=== PATIENT | female | born 1975 | race Caucasian/White ===

== ENCOUNTER 2020-09-17 05:23 | Emergency (ER) | payer OTHER, SELFPAY ==
[2020-09-17 06:13] VITALS: BP 165/102; PULSE 82; RESP 16; TEMP 36.9; O2SAT 96; BMI 25.8
--- NOTE | 2020-09-17 06:36 | ED.HA ---
HPI - Headache General Chief Complaint: Headache Stated Complaint: migraine Time Seen by Provider: 09/17/20 06:26 Source: patient Mode of arrival: ambulatory Limitations: no limitations History of Present Illness HPI Narrative: Patient comes emergency room complaining of a migraine headache. Patient states it started approximately 1 week ago, gradually becoming worse. Patient does have history of migraines. Patient states the headache intensifies with light and loud noises. Complaining of nausea, no vomiting, no diarrhea. Patient states the headache is frontal, radiates towards the back of her head bilaterally. Patient denies visual changes, denies dizziness, no chest pain or shortness of breath. Patient states that at home she has tried [id number] medications with no relief. Related Data Previous Rx's Medication Instructions Recorded sumatriptan succinate 50 mg PO Q2-4H PRN #10 tab 09/17/20 Allergies Allergy/AdvReac Type Severity Reaction Status Date / Time cinnamon [CINNAMON] AdvReac Unknown MIGRAINE Unverified 01/19/20 16:39 coconut AdvReac Unknown MIGRAINE Unverified 01/19/20 16:39 Review of Systems Review of Systems: Constitutional : No Weight loss, No Fever, No Chills, No Night Sweats, No Fatigue, No Malaise ENT/Mouth : No Hearing loss, No Ear Pain, No Nasal Congestion, No Sinus Pain, No Hoarseness, No sore throat, No Rhinorrhea, No Swallowing Difficulty Eyes: No Eye Pain, No Swelling, No Redness, No Foreign Body, No Discharge, No Vision Changes complaining of photophobia Cardiovascular : No Chest Pain, No SOB, No Dyspnea on Exertion, No Orthopnea, No Edema, No Palpitations Respiratory : No Cough, No Sputum, No Wheezing, No Smoke Exposure, No Dyspnea Gastrointestinal : No Nausea, No Vomiting, No Diarrhea, No Constipation, No abdominal Pain, No Hematochezia, No Melena Genitourinary : no irregular bleeding, No Dysuria, No Urinary Frequency, No Hematuria, No Urinary Incontinence, No Urgency, No Flank Pain, No Urinary Flow Changes, No Hesitancy Musculoskeletal : No joint pain, No Myalgias, No Joint Swelling Skin : No Skin Lesions, No rash Neuro : No Weakness, No Numbness, No Paresthesias, No Loss of Consciousness, No Dizziness, complaining of a migraine headache Psych : No Anxiety/Panic, No Depression, No SI/HI/AH/VH, No Social Issues, Heme/Lymph: No Bruising, No Bleeding,No Lymphadenopathy Endocrine : No Polyuria, No Polydipsia, No Temperature Intolerance [facility] Past Medical History Medical History Migraine Social History Social History Alcohol intake: current Alcohol intake frequency: holidays/special occasions only Smoking Status: Former smoker Smoked in Last 30 Days: No Use of substances other than those prescribed or required for medical reasons: No Advance Directives: No Advance Directives Information Provided: No Patient : No Physical Exam Vital Signs: Vital Signs: Last Vital Signs Temp 98.5 F 09/17/20 06:13 Pulse 82 09/17/20 06:13 Resp 16 09/17/20 06:13 BP 165/102 H 09/17/20 06:13 Pulse Ox 96 09/17/20 06:13 Body Mass Index 25.8 Appearance: Alert. Oriented X3. No acute distress. Eyes: Pupils equal, round and reactive to light. Has photophobia ENT: Pharynx normal. Neck: Normal inspection. Neck supple. No lymph nodes noted. No crepitus CVS: Normal heart rate and rhythm. Pulses normal. Normal S1 and S2 Respiratory: No respiratory distress. Breath sounds normal. No Wheezing. No rales Abdomen: Soft and nontender. No rigidity. No distention. good BS x4 Skin: Skin warm and dry. Normal skin color. Normal skin turgor. Extremities: No lower extremity edema. No lower extremity edema. No Lacerations. No Rash Neuro: Oriented X 3. No motor deficit. No sensory deficit. Moving all extermities. No slurred speech. Course Course Course Narrative: Patient is receiving IV fluids, Phenergan, Benadryl, Toradol. Patient will need reassessment and likely if she improves she will be discharged home. Sign out given to Dr. Chang Discharge Plan Discharge Clinical Impression: Migraine Qualifiers: Migraine type: unspecified Patient Disposition: Home, Self-Care Instructions: Migraine Headache (ED) Additional Instructions: Please follow-up with your primary care physician tomorrow. If you have any worsening or new symptoms, please return to the emergency room or call 911 Prescriptions: New sumatriptan succinate 50 mg tablet 50 mg PO Q2-4H PRN (Reason: migraine headache) Qty: 10 RF: 0
[2020-09-17] MEDS: Ketorolac Tromethamine 30 MG/ML VIAL IVPUSH (07:02)
[2020-09-17] MEDS: diphenhydrAMINE HCL 50 MG/ML VIAL IVPUSH (07:04)
[2020-09-17] MEDS: Metoclopramide HCl 10 MG/2 ML VIAL IVPUSH (07:07)
[2020-09-17] MEDS: 0.9 % Sodium Chloride 1,000 ML 999 ML IVCONT (07:12)
[2020-09-17 07:54] VITALS: BP 148/97; PULSE 92; RESP 16; TEMP 36.8; O2SAT 98
[2020-09-17 09:44] VITALS: BP 135/92; PULSE 81; RESP 16; TEMP 37.1; O2SAT 97
== END 2020-09-17 09:54 | disposition home or self-care (01) ==
PROVIDERS: Emergency Provider Emergency Medicine; PCP Internal Medicine
DX: G43.909 Migraine, unspecified, not intractable, without status migrainosus (principal)
CPT/HCPCS: 96361; 96374; 96375; 99284; 99285; J1200; J1885; J2765

== ENCOUNTER 2022-12-30 07:51 | Emergency (ER) | payer OTHER, SELFPAY ==
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
[2022-12-30 08:06] VITALS: BP 148/88; PULSE 78; RESP 16; TEMP 37.5; O2SAT 98; BMI 23.4
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
[2022-12-30] MEDS: Acetaminophen 325 MG TABLET 975 MG PO (09:41)
[2022-12-30 11:14] VITALS: BP 139/96; PULSE 74; RESP 14; O2SAT 98
[2022-12-30] MEDS: oxyCODONE HCl Immed Release 5 MG TABLET PO (11:29)
== END 2022-12-30 11:39 | disposition home or self-care (01) ==
PROVIDERS: Emergency Provider Student in an Organized Health Care Education/Training Program; PCP Internal Medicine
DX: S13.4XXA Sprain of ligaments of cervical spine, initial encounter (principal); S09.90XA Unspecified injury of head, initial encounter; M25.562 Pain in left knee; M25.561 Pain in right knee; M25.512 Pain in left shoulder; M25.511 Pain in right shoulder; R51.9 Headache, unspecified; M54.2 Cervicalgia; V43.52XA Car driver injured in collision with other type car in traffic accident, initial encounter; Y93.9 Activity, unspecified; Y92.410 Unspecified street and highway as the place of occurrence of the external cause; Y99.9 Unspecified external cause status; Z79.899 Other long term (current) drug therapy
CPT/HCPCS: 70450; 70486; 72125; 73030; 73564; 99284

== ENCOUNTER 2023-07-30 17:52 | Outpatient (REF) | payer MEDICAID, SELFPAY ==
[2023-07-31 08:52] LABS: BV Int Neg Control Negative (Negative); BV Int Pos Control Positive (Positive)
== END 2023-07-30 17:53 | disposition home or self-care (01) ==
LOC: HO.HHCLNP 17:52
PROVIDERS: Visit Provider Student in an Organized Health Care Education/Training Program
DX: N76.0 Acute vaginitis (principal)
CPT/HCPCS: 87480; 87510; 87660

== ENCOUNTER 2023-11-27 13:31 | Outpatient (REF) | payer MEDICAID, SELFPAY ==
[2023-11-27 15:54] LABS: MANUAL DIFF FLAG NO
[2023-11-27 16:00] LABS: Basophils Absolute Auto 0.1 X10*3/uL (0.0-0.2); Basophils Percent Auto 0.6 % (0-2); Eosinophils Absolute Auto 0.1 X10*3/uL (0.0-0.4); Eosinophils Percent Auto 1.1 % (0-4); Hemoglobin 15.6 g/dl (12.0-16.0); Imm Gran Abs Auto 0.03 X10*3/uL (0.00-0.03); Imm Gran Pct Auto 0.4 % (0.0-0.4); Lymphocytes Absolute Auto 2.2 X10*3/uL (1.2-4.9); Lymphocytes Percent Auto 26.7 % (20-40); Mean Corpuscular HGB Conc 34.7 g/dl (31.0-35.0); Mean Corpuscular Volume 92.4 fL (80.0-98.0); Mean Platelet Volume 11.2 fL (9.4-12.3); Monocytes Absolute Auto 0.6 X10*3/uL (0.1-1.2); Monocytes Percent Auto 6.9 % (2-11); Neutrophils Absolute Auto 5.4 x10*3/uL (2.0-8.3); Neutrophils Percent Auto 64.3 % (45-73); Platelet Count 251 X10*3/uL (160-400); Red Blood Count 4.87 X10*6/uL (4.20-5.50); Red Cell Distribution Width 13.1 % (11.0-16.0); White Blood Count 8.4 X10*3/uL (4.8-10.8)
[2023-11-27 16:14] LABS: Alanine Aminotransferase 15 U/L (0-31); Albumin Level 4.5 g/dL (3.5-5.0); Alkaline Phosphatase 77 U/L (39-117); Anion Gap 14 (12-20); Aspartate Amino Transferase 17 U/L (5-31); Bilirubin Total 0.3 mg/dL (0.0-1.0); Blood Urea Nitrogen 14 mg/dL (9-16); Calcium 10.2 mg/dL (8.4-10.2); Carbon Dioxide 21 mmol/L (22-29); Chloride 107 mmol/L (96-108); Estimated Glomerular Filt Rate > 60; Glucose Random 99 mg/dL (60-115); Potassium 4.2 mmol/L (3.3-5.1); Sodium 138 mmol/L (135-145); Total Protein 7.9 g/dL (6.5-8.0)
[2023-11-30 17:14] LABS: Lyme Abs Screen <0.90 index
== END 2023-11-27 13:32 | disposition home or self-care (01) ==
LOC: HO.HHCL 13:31
PROVIDERS: Visit Provider Nurse Practitioner Family
DX: L03.313 Cellulitis of chest wall (principal)
CPT/HCPCS: 36415; 80053; 85025; 86617; 86618

== ENCOUNTER 2023-12-31 13:25 | Outpatient (REF) | payer MEDICAID, SELFPAY ==
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
== END 2023-12-31 13:26 | disposition home or self-care (01) ==
LOC: HO.MAMMO 13:25
PROVIDERS: Visit Provider Nurse Practitioner Family
DX: N64.4 Mastodynia (principal)
CPT/HCPCS: 77062; 77066

== ENCOUNTER → 2023-12-31 13:30 | Outpatient (BNV) | payer MEDICAID, SELFPAY | PROVIDERS: Visit Provider Radiology Diagnostic Radiology | DX: N64.52 Nipple discharge (principal) | CPT/HCPCS: 77062; 77066 ==

== ENCOUNTER 2024-02-08 18:32 | Outpatient (REF) | payer MEDICAID, SELFPAY ==
[2024-02-12 20:14] LABS: HPV mRNA E6/E7 Not Detected (Not Detected)
== END 2024-02-08 18:33 | disposition home or self-care (01) ==
LOC: HO.HHCLNP 18:32
PROVIDERS: Visit Provider Advanced Practice Midwife
DX: Z12.4 Encounter for screening for malignant neoplasm of cervix (principal)
CPT/HCPCS: 36415; 87624; 88175

== ENCOUNTER 2024-11-09 12:19 | Outpatient (REF) | payer MEDICAID, SELFPAY ==
--- OUTSIDE RECORDS SUMMARY | 2024-11-09 17:00 | XMS_ITS | Encounter Summary ---
Author Organization [employer] Address [address] [facility] [address] [place] [address] Care Team Providers Care Claims Technician Name Role Phone Nahun Azevedo MD Primary Care Prov ider Reason for Visit * Reason Comments Cough UTI Encounter Details Date Type Department Care Team ([facility] st Contact Info) Description 11/09/2024 5:00 PM EDT Office Visit [facility] [address] [place] [address] [phone] Ruben Isidro MD [address] [place] [address] Viral URI with cough (Primary Dx); Acute cystitis with hematuria; Cold sore Social History Tobacco Use Types Packs/Day Years Used Date Smoking Tobacco: Former Cigarettes Q uit: 2014 Passive Smoke Exposure: Current Smokeless Tobacco: Never Comments:Former smoker Alcohol Use Standard Drinks/Week Comments Yes 1 (1 standard drink = 0.6 oz pur e alcohol) occasional alcohol use Depression Answer Date Recorded Patient Health Questionnaire-9 Score 3 08/01/2024 Patient Health Questionnaire-9 Score 3 08/01/2024 Last PHQ-9: Questionnaire Data Not on file 0 08/01/2024 Housing Stability Answer Date Recorded What is your housing situation today? I have maria del carmen sing 01/19/[address] you li ve. Do you have problems with any of the following? None of the above 01/19/2024 Food Insecurity Answer Date Recorded Within the past 12 months, y ou worried that your food would run out before you got money to buy more: Never True 01/19/2024 Within the past 12 months,th e food you bought just didn't last and you didn't have enough money to get more: Never True Transportation Answer Date Recorded In the past 12 months, has l ack of transportation kept you from medical appts, meetings, work or from getting things needed for daily living? No 01/19/2024 Utilities Answer Date Recorded In the past 12 months, has t he electric, gas, oil or water company threatened to shut off services in your home? No 01/19/2024 Depression Answer Date Recorded Patient Health Questionnaire-2 Score 1 08/01/2024 Internet Access Answer Date Recorded Internet Access Q1 Yes 01/19/2024 Internet Access Q2 Not on file 01/19/2024 Education Answer Date Recorded What is the highest level of school you have completed or the highest degree you have received? 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) Not on file Not on file Not on f ile documented as of this encounter Last Filed Vital Signs Vital Sign Reading Time Taken Comments Blood Pressure 138/90 11/09/2024 5:42 PM EDT Pulse 103 11/09/2024 5:42 PM EDT Temperature 36.6 C (97.8 F) 11/09/2024 5:16 PM EDT Respiratory Rate 20 11/09/2024 5:16 PM EDT Oxygen Saturation 98% 11/09/2024 5:42 PM EDT Inhaled Oxygen Concentration - - Weight 68.8 kg (151 lb 9.6 oz) 11/09/2024 5:16 P M EDT Height 168.9 cm (5' 6.5 ) 11/09/2024 5:16 PM EDT Body Mass Index 24.1 11/09/2024 5:16 PM EDT documented in this encounter Progress Notes * Ruben Isidro MD - 11/09/2024 5:00 PM EDT Subjective History was provided by the patient. Lu Jackson is a 49 y.o. female who presents for evaluation of suprapubic pressure and dark urine. Onset 2 weeks ago, but now reports back pain for 2-3 days. Also with oral sore for 1 week. She typically uses Valacyclovir, but ran out. Also reports cough, congestion, rhinorrhea, sore throat, bilateral ear pain, and body ache for 1 week. Denies F/C/N/V/D. Objective Vitals: 11/09/24 1716 11/09/24 1742 BP: (!) 151/112 (!) 138/90 BP Location: Left arm Left arm Patient Position: Sitting Sitting BP Cuff Size: Adult Adult Pulse: (!) 121 103 Resp: 20 Temp: 97.8 ??F (36.6 ??C) TempSrc: Oral SpO2: 98% Weight: 151 lb 9.6 oz (68.8 kg) Height: 5' 6.5 (1.689 m) Physical Exam Vitals reviewed. Constitutional: Appearance: Normal appearance. She is normal weight. HENT: Head: Normocephalic and atraumatic. Right Ear: Tympanic membrane, ear canal and external ear normal. Left Ear: Tympanic membrane, ear canal and external ear normal. Nose: Congestion present. No rhinorrhea. Mouth/Throat: Mouth: Mucous membranes are moist. Pharynx: No oropharyngeal exudate or posterior oropharyngeal erythema. Comments: 2 lower lip ulcerations (~5mm each) Eyes: Extraocular Movements: Extraocular movements intact. Conjunctiva/sclera: Conjunctivae normal. Pupils: Pupils are equal, round, and reactive to light. Cardiovascular: Rate and Rhythm: Normal rate and regular rhythm. Heart sounds: Normal heart sounds. Pulmonary: Effort: Pulmonary effort is normal. Breath sounds: Normal breath sounds. Abdominal: General: Abdomen is flat. There is no distension. Palpations: Abdomen is soft. Tenderness: There is no abdominal tenderness. There is no right CVA tenderness, left CVA tenderness, guarding or rebound. Genitourinary: Comments: Wet mount with saline/LATRICIA: No Clue cells, negative Trich, negative hyphae Musculoskeletal: General: Normal range of motion. Cervical back: Normal range of motion and neck supple. Skin: General: Skin is warm and dry. Neurological: General: No focal deficit present. Mental Status: She is alert and oriented to person, place, and time. Mental status is at baseline. Psychiatric: Mood and Affect: Mood normal. Behavior: Behavior normal. Thought Content: Thought content normal. Judgment: Judgment normal. Lu was seen today for cough and uti. Diagnoses and all orders for this visit: Viral URI with cough (Primary) - benzonatate (Tessalon Perles) 100 MG capsule; Take 1 capsule (100 mg) by mouth if needed in the morning, at noon, and at bedtime for cough for up to 7 days. Do not crush or chew. - POCT Rapid Strep A WINSTON ID NOW - POCT Rapid Influenza B WINSTON ID NOW - POCT Rapid Influenza A WINSTON ID NOW - POCT Rapid Covid-19 BinaxNOW Acute cystitis with hematuria - sulfamethoxazole-trimethoprim (Bactrim DS) 800-160 MG tablet; Take 1 tablet by mouth 2 times daily for 3 days. - POCT Urinalysis - Culture, Urine, Routine; Future - Chlamydia/N. Gonorrhoeae RNA, TMA, Urogenitial - Bacterial Vaginosis Panel Cold sore - valACYclovir (Valtrex) 1 g tablet; Take 1 tablet (1,000 mg) by mouth 2 times daily for 3 days. Patient presents to [facility] with several concerns Patient with a clinical presentation of viral URI, acute cystitis, and cold sores Normal pulmonary exam and no respiratory distress Rapid COVID-19, Influenza A/B, and Strep tests all negative today O2 sat reassuring Discussed supportive care with ample hydration, sleep position and rest OTC supportive medications reviewed Droplet precautions discussed Will treat with Benzonatate prn for cough suppression Bactrim DS 3-day course for UTI No clinical evidence of acute abdomen or pyelonephritis Will send out UCx and BV swabs Rx Valacyclovir for orolabial Herpes Potential adverse effects of the medications reviewed Probiotic use discussed Allergies reviewed Discussed strategies to prevent future infections Advised to contact the clinic if no improvement of symptoms documented in this encounter Plan of Treatment Scheduled Orders Name Type Priority Associated Diagnoses Orde r Schedule Culture, Urine, Routine Microbiology Routine Acute cystitis with hematuria Expected: 11/09/2024 (Approximate), Expires: 11/09/2025 Chlamydia/N. Gonorrhoeae RNA, TMA, Urogenitial Microbiology Routine Acute cystitis with hematuria Ordered: 11/09/2024 Bacterial Vaginosis Panel Microbiology Routine Acute cystitis with hematuria Ordered: 11/09/2024 documented as of this encounter Procedures Procedure Name Priority Date/Time Associated Diagnosis Comments POCT INFLUENZA B (ID NOW RAPID MOLECULAR) Routine 11/09/2024 5:48 PM EDT Viral URI with cough POCT INFLUENZA A (ID NOW RAPID MOLECULAR) Routine 11/09/2024 5:48 PM EDT Viral URI with cough POC WINSTON ID NOW STREP A Routine 11/09/2024 5:48 PM EDT Viral URI with cough POCT RAPID COVID ANTIGEN Routine 11/09/2024 5:48 PM EDT Viral URI with cough POCT URINALYSIS DIPSTICK Routine 11/09/2024 5:48 PM EDT Acute cystitis with hematuria documented in this encounter Results * POCT Rapid Covid-19 BinaxNOW (11/09/2024 5:48 PM EDT) Pathologist [facility] Rapid COVID Ag Negative Swab 11/09/2024 5:48 PM EDT us Ruben Isidro MD POINT OF CARE TEST ENTER/EDIT OR DERABLES Final Result * POCT Rapid Influenza A WINSTON ID NOW (11/09/2024 5:48 PM EDT) [facility] Influenza A Negative Negative, Indeterminate [facility] Swab 11/09/2024 5:48 PM EDT us Ruben Isidro MD POINT OF CARE TEST ENTER/EDIT OR DERABLES Final Result [facility] [address] [place] [phone] * POCT Rapid Influenza B W[place] ID NOW (11/09/2024 5:48 PM EDT) [facility] Influenza B Negative Negative, Indeterminate [facility] Swab 11/09/2024 5:48 PM EDT us Ruben Isidro MD POINT OF CARE TEST ENTER/EDIT OR DERABLES Final Result Performing Organization Address [facility] Co de Phone Number [facility] [address] [place] [phone] * POCT Rapid Strep A WINSTON ID NOW (11/09/2024 5:48 PM EDT) Rapid Strep A Screen Negative Negative, None Detected [facility] Swab 11/09/2024 5:48 PM EDT us Ruben Isidro MD POINT OF CARE TEST ENTER/EDIT OR DERABLES Final Result Performing Organization Address [facility] de Phone Number [facility] [address] [place] [phone] * (ABNORMAL) POCT Urinalysis (11/09/2024 5:48 PM EDT) Color, UA Yellow [facility] Clarity, UA Cloudy [facility] Glucose, UA Negative [facility] Bilirubin, UA Few 15 [facility] Comment:small Ketones, UA Positive [facility] Comment:15 mg Spec Grav, UA 1.020 [facility] Blood, UA Positive(A) Negative, None Detected [facility] Comment:small pH, UA 6.0 [facility] Protein, UA Trace [facility] Urobilinogen, UA 0.2 [facility] Leukocytes, UA Trace Negative, Rare, Trace [facility] Nitrite, UA Negative Negative, None Detected [facility] Urine 11/09/2024 5:48 PM EDT us Ruben Isidro MD POINT OF CARE TEST ENTER/EDIT OR DERABLES Final Result Performing Organization Address [facility] Co de Phone Number [facility] [address] [place] [address] [phone] documented in this encounter Visit Diagnoses Diagnosis Viral URI with cough- Primary Acute cystitis with hematuria Cold sore Herpes simplex without mention of complication documented in this encounter Additional Health Concerns Assessment Noted Time PHQ-9 Depression Total Score: 3 08/02/19 25 9:27 AM EDT documented as of this encounter Care Teams Claims Technician Relationship Specialty Start Date End Date Nahun Azevedo MD [address] [place] [phone] PCP - General Internal Medicine 07/11/24 documented as of this encounter
[2024-11-10 13:27] LABS: Bacterial Vaginosis PCR POSITIVE (Negative); Candida Group PCR NOT DETECTED (Not Detect); Candida glab krusei PCR NOT DETECTED (Not Detect); Trichomonas vaginalis PCR NOT DETECTED (Not Detect)
[2024-11-10 14:01] LABS: CT PCR NOT DETECTED (Not Detect.); NG PCR NOT DETECTED (Not Detect.)
== END 2024-11-09 12:20 | disposition home or self-care (01) ==
LOC: HO.HHCLNP 12:19
PROVIDERS: Visit Provider Family Medicine
DX: N30.01 Acute cystitis with hematuria (principal); Z11.3 Encounter for screening for infections with a predominantly sexual mode of transmission
CPT/HCPCS: 81515; 87086; 87491; 87591

== ENCOUNTER 2024-12-09 13:13 | Outpatient (REF) | payer MEDICAID, SELFPAY ==
--- OUTSIDE RECORDS SUMMARY | 2024-12-09 13:16 | XMS_ITS | Clinical Summary ---
Author Organization [employer] Address [address] [place] [address] Care Team Providers Care Manager Apple Name Role Phone Nahun Azevedo MD Primary Care Prov ider Allergies Active Allergy Reactions Criticality Noted Date Comments Cinnamon Swelling,Headache Medium 07/30/2023 Requires Benadryl for symptoms Coconut (Cocos Nucifera) Itching,Headache Medium 07/30/2023 Headache and throat itchiness, requires Benadryl for symptoms Medications amLODIPine (Norvasc) 5 MG tablet TAKE 1 TABLET BY MOUTH EVERY MORNING 90 tablet 3 07/25/2024 Active Blood Pressure kit 1 kit Once per day. 1 kit 08/01/2024 Active nitrofurantoin, macrocrystal-mo nohydrate, (Macrobid) 100 MG capsuleIndicati ons:UTI symptoms Take 1 capsule (100 mg) by mouth 2 times daily for 7 days. 14 capsule 12/09/2024 12/17/19 25 Active fluconazole (Diflucan) 150 MG tabletIndicatio ns:Vaginal discharge Take 1 tablet (150 mg) by mouth 1 (one) time for 1 dose. 1 tablet 12/09/2024 12/10/19 25 Active metroNIDAZOLE (Flagyl) 500 MG tabletIndicatio ns:Vaginal discharge Take 1 tablet (500 mg) by mouth 2 times daily for 7 days. 14 tablet 12/09/2024 12/17/19 25 Active valACYclovir (Valtrex) 1 g tabletIndicatio ns:Cold sore Take 1 tablet (1,000 mg) by mouth 2 times daily for 3 days. 6 tablet 12/09/2024 12/13/19 25 Active valACYclovir (Valtrex) 1 g tabletIndicatio ns:Cold sore Take 1 tablet (1,000 mg) by mouth 2 times daily for 3 days. 6 tablet 11/09/2024 11/13/19 25 sulfamethoxazol e-trimethoprim (Bactrim DS) 800-160 MG tabletIndicatio ns:Acute cystitis with hematuria Take 1 tablet by mouth 2 times daily for 3 days. 6 tablet 11/09/2024 11/13/19 25 benzonatate (Tessalon Perles) 100 MG capsuleIndicati ons:Viral URI with cough Take 1 capsule (100 mg) by mouth if needed in the morning, at noon, and at bedtime for cough for up to 7 days. Do not crush or chew. 20 capsule 11/09/2024 11/17/19 25 metroNIDAZOLE (Flagyl) 500 MG tabletIndicatio ns:Bacterial vaginosis Take 1 tablet (500 mg) by mouth 2 times daily for 7 days. 14 tablet 11/11/2024 11/19/19 25 Active Problems Problem Noted Date Diagnosed Date UTI symptoms 12/09/2024 Assessment & Plan (12/09/2024 10:28 AM EDT): Drink plenty of water and do not hold the urine UA done culture send she will be contacted with results Macrobid proscribed empirically Vaginal discharge 12/09/2024 Assessment & Plan (12/09/2024 10:29 AM EDT): BV will be send to lab She will be treat for yeast and BV empirically Cold sore 12/09/2024 H/O renal calculi 12/09/2024 Encounter for medical examination to establish c are 01/19/2024 Assessment & Plan (01/19/2024 12:15 PM EDT): Patient last pcp visit was over 6 years ago Denied recent er visit in the past year No hospitalization Pmhx: HTN Pshx: rigth knee arthroscopy 1993, right foot bunion 1999 Meds: amlodipine 5mg A0 Menarche at 13yrs Patient has a mirena IUD inserted over 10 years ago General counseling and advice on female contrace ption 01/19/2024 Assessment & Plan (01/19/2024 12:16 PM EDT): Patient has a mirena iud implanted over 10years ago will refer for removal Screening for colon cancer 01/19/2024 Assessment & Plan (01/19/2024 12:18 PM EDT): Will refer for screening colonoscopy Vaginal mili 11/27/2023 Breast pain in female 11/27/2023 Assessment & Plan (11/27/2023 6:31 PM EDT): Ultrasound and diagnostic mammogram ordered Cellulitis of chest wall 11/27/2023 Assessment & Plan (11/27/2023 6:32 PM EDT): Suspect cellulitis, though ddx includes early erythema migrans No palpable mass, however pt has never had mammography and does have fh, will proceed with right breast dignostic imaging Labs as ordered below Hypertension 07/30/2023 Overview (07/30/2023): Patient reported, on Norvasc but hasn't had meds for about 6 months Assessment & Plan (12/09/2024 10:27 AM EDT): I advised low Na diet to take her medications every day and f/u with PCP Assessment & Plan (08/01/2024 10:06 AM EDT): Will send blood pressure monitor, encouraged to keep low sodium diet and exercise as tolerated, keep bp log, target <140/90, new labs ordered Assessment & Plan (11/27/2023 6:30 PM EDT): Pt reports increased anxiety today and did not take medication but will resume Encounters Date Type Department Care Team Description 12/09/2024 10:00 AM EDT Office Visit [facility] [address] [address] Gayatri Silverio MD UTI symptoms (Primary Dx); Flank pain; Dysuria; Vaginal discharge; Cold sore; H/O renal calculi; Hypertension, unspecified type 12/09/2024 Travel 11/11/2024 Telephone [facility] [address] [place] [address] Ruben Isidro MD 11/09/2024 5:00 PM EDT Office Visit [facility] [address] [place] [address] Ruben Isidro MD Viral URI with cough (Primary Dx); Acute cystitis with hematuria; Cold sore 11/09/2024 Travel from Last 3 Months Family History Medical History Relation Name Comments No Known Problems Father Breast cancer Mother recurrence in 70s, unsure which breast Relation Name Status Comments Father Mother Social History Tobacco Use Types Packs/Day Years Used Date Smoking Tobacco: Former Cigarettes Q uit: 2014 Passive Smoke Exposure: Current Smokeless Tobacco: Never Tobacco Cessation:Counseling Given: Not Answered Comments:Former smoker Alcohol Use Standard Drinks/Week Comments Yes 1 (1 standard drink = 0.6 oz pur e alcohol) occasional alcohol use Depression Answer Date Recorded Patient Health Questionnaire-9 Score 3 08/01/2024 Patient Health Questionnaire-9 Score 3 08/01/2024 Last PHQ-9: Questionnaire Data Not on file 0 08/01/2024 Housing Stability Answer Date Recorded What is your housing situation today? 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 Not on file Not on f ile Last Filed Vital Signs Vital Sign Reading Time Taken Comments Blood Pressure 142/90 12/09/2024 10:27 AM EDT Pulse 100 12/09/2024 10:01 AM EDT Temperature 36.9 C (98.5 F) 12/09/2024 10:01 AM EDT Respiratory Rate 17 12/09/2024 10:01 AM EDT Oxygen Saturation 96% 12/09/2024 10:01 AM EDT Inhaled Oxygen Concentration - - Weight 69 kg (152 lb 2 oz) 12/09/2024 10:01 AM E DT Height 168.9 cm (5' 6.5 ) 12/09/2024 10:01 AM ED T Body Mass Index 24.19 12/09/2024 10:01 AM EDT Plan of Treatment Health Maintenance Due Date Last Done Comments CT Colonography 1975 Colonoscopy 1975 Colorectal Cancer Screening 1975 FIT DNA/Cologuard 1975 FIT 1975 FOBT 1975 HIV Screening 1975 Lipid Panel 1975 Sigmoidoscopy 1975 Disability Screening 1975 Hepatitis C Screening 1993 Hepatitis B Vaccines (1 of 3 - 19+ 3-dose series) 1994 Pneumococcal Vaccine: Pediatrics (0 to 5 Years) and At-Risk Patients (6 to 49) Years (2 of 2 - PCV) 05/16/2009 05/16/2008 COVID-19 Vaccine ( - season) 2024 Influenza Vaccine (#1) 2025 6, 04/26/2015, 03/21/2014, Additional history exists SDOH Screening 01/18/2025 01/19/2024 Family Planning (PISQ) 02/07/2025 02/08/2024 Zoster Vaccines (1 of 2) 2025 Alcohol/Substance Use Screening 08/01/2025 08/01/2024 Depression Screening 08/01/2025 08/01/2024, 08/02/19 Tobacco Screening 12/09/2025 12/09/2024 Mammogram 12/30/2025 12/31/2023 DTaP/Tdap/Td Vaccines (2 - Td or Tdap) 01/26/2028 01/25/2018, 02/01/1999 Cervical Cancer Screening 02/07/2029 HPV/Cotest 02/07/2029 02/08/2024 Pap Smear 02/07/2029 02/08/2024 RSV Patients and Patients Aged 60 years or older (1 - 1-dose 75+ series) 2050 HIB Vaccines Aged Out No longer eligi ble based on patient's age to complete this topic HPV Vaccines Aged Out No longer eligi ble based on patient's age to complete this topic Hepatitis A Vaccines Aged Out No long er eligible based on patient's age to complete this topic IPV Vaccines Aged Out No longer eligi ble based on patient's age to complete this topic Meningococcal B Vaccine Aged Out No l onger eligible based on patient's age to complete this topic Meningococcal Vaccine Aged Out No nick viraj eligible based on patient's age to complete this topic RSV under 20 months Aged Out No longe r eligible based on patient's age to complete this topic Rotavirus Vaccines Aged Out No longer eligible based on patient's age to complete this topic Procedures Procedure Name Priority Date/Time Associated Diagnosis Comments POCT URINALYSIS DIPSTICK Routine 12/09/2024 10:11 AM EDT Flank pain BACTERIAL VAGINOSIS PANEL Routine 11/09/2024 6:30 PM EDT Acute cystitis with hematuria CHLAMYDIA/N. GONORRHOEAE RNA, TMA, UROGENITAL Routine 11/09/2024 6:30 PM EDT Acute cystitis with hematuria CULTURE, URINE, ROUTINE Routine 11/09/2024 6:30 PM EDT Acute cystitis with hematuria POCT RAPID COVID ANTIGEN Routine 11/09/2024 5:48 PM EDT Viral URI with cough POCT INFLUENZA A (ID NOW RAPID MOLECULAR) Routine 11/09/2024 5:48 PM EDT Viral URI with cough POCT INFLUENZA B (ID NOW RAPID MOLECULAR) Routine 11/09/2024 5:48 PM EDT Viral URI with cough POC WINSTON ID NOW STREP A Routine 11/09/2024 5:48 PM EDT Viral URI with cough POCT URINALYSIS DIPSTICK Routine 11/09/2024 5:48 PM EDT Acute cystitis with hematuria THINPREP IMAGING PAP AND HPV MRNA E6/E7 Routine 02/08/2024 12:00 AM EDT BI MAMMOGRAM DIAGNOSTIC TOMOSYNTHESIS BILATERAL Urgent 12/31/2023 1:30 PM EDT from Last 3 Months or Most Recently Relevant to Health Maintenance Results * (ABNORMAL) POCT Urinalysis (12/09/2024 10:11 AM EDT) Only the most recent of2 resultswithin the time period is included. Color, UA Light Yellow Clarity, UA Clear Glucose, UA Negative Bilirubin, UA Negative Ketones, UA Negative Spec Grav, UA 1.015 Blood, UA Positive(A) Negative, None Detected Comment:Trace-intact pH, UA 6.0 Protein, UA Negative Urobilinogen, UA 0.2 Leukocytes, UA Trace Negative, Rare, Trace Nitrite, UA Negative Negative, None Detected Appearance, UA clear QC Media Lot # [id number] Lot# Expiration Date [id number] Urine 12/09/2024 10:1 1 AM EDT Gayatri Marcelo MD POINT OF CARE TEST EN TER/EDIT ORDERABLES Final Result * (ABNORMAL) Bacterial Vaginosis Panel (11/09/2024 6:30 PM EDT) [facility] TRICHOMONAS VAGINALIS DETECTION BY PCR NOT DETECTED Not Detect [facility] BACTERIAL VAGINOSIS DETECTION BY PCR POSITIVE(A) Negative [facility] Comment:The BV organism targ ets of the Xpert Xpress MVP test can becommensal in women; Xpert Xpress MVP positive results forbacterial vaginosis should be considered in conjunction withother clinical and patient information to determine thedisease status. Organisms that are not detected by the XpertXpress MVP test have also been reported to be associatedwith BV and aerobic vaginitis.The Xpert Xpress MVP test performance has not been evaluatedin patients under the age of 14. MILI GROUP DETECTION BY PCR NOT DETECTED Not Detect [facility] Mili glab krusei PCR NOT DETECTED Not Detect [facility] Swab Vaginal structure / Unknown 11/09/2024 6:30 PM EDT 11/10/2024 12:20 PM EDT Ruben Isidro MD LAB MICROBIOLOGY - GENERAL ORDER ASAD Final Result [facility] [address] [place] [phone] * Chlamydia/N. Gonorrhoeae RNA, TMA, Urogenitial (11/09/2024 6:30 PM EDT) [facility] CT PCR NOT DETECTED Not Detect. [facility] Comment:A not detected test result does not exclude the possibilityof infection because test results can be affected byimproper specimen collection, concurrent antibiotic therapy,or the number of organisms in the specimen which may bebelow the sensitivity of the test. As with many diagnostictests, results from the Xpert CT/NG assay should beinterpreted in conjunction with other laboratory andclinical data available to the clinician.Xpert CT/NG performance has not been evaluated in patientsless than 14 years of age. The assay should not be used forthe evaluationof suspected sexual abuse or for other medico-legalindications. Additional testing is recommended in anycircumstance when false positive or false negative resultscould lead to adverse medical, social or psychologicalconsequences. NG PCR NOT DETECTED Not Detect. [facility] Comment:A not detected test result does not exclude the possibilityof infection because test results can be affected byimproper specimen collection, concurrent antibiotic therapy,or the number of organisms in the specimen which may bebelow the sensitivity of the test. As with many diagnostictests, results from the Xpert CT/NG assay should beinterpreted in conjunction with other laboratory andclinical data available to the clinician.Xpert CT/NG performance has not been evaluated in patientsless than 14 years of age. The assay should not be used forthe evaluationof suspected sexual abuse or for other medico-legalindications. Additional testing is recommended in anycircumstance when false positive or false negative resultscould lead to adverse medical, social or psychologicalconsequences. Swab Vaginal structure / Unknown 11/09/2024 6:30 PM EDT 11/10/2024 12:20 PM EDT Ruben Isidro MD LAB MICROBIOLOGY - GENERAL ORDER ASAD Final Result Performing Organization Address [facility] Co de Phone Number [facility] [address] [place] [phone] * Culture, Urine, Routine (11/09/2024 6:30 PM EDT) Urine Urine specimen obtained by clean catch procedure / Unknown 11/09/2024 6:30 PM EDT 11/10/2024 12:20 PM EDT Comment:UACC Narrative [facility] - 11/12/2024 10:52 AM EDT Urine Culture Report Result Urine Culture 10,000 to 50,000 cfu/ml Urine Culture Mixed bacterial yisel characteristic of Urine Culture urogenital contamination. Specimen Source: Urine clean catch Ruben Isidro MD LAB MICROBIOLOGY - GENERAL ORDER ASAD Final Result Performing Organization Address City/[facility] Co de Phone Number [facility] [address] [place] [phone] * POCT Rapid Influenza B WINSTON ID NOW (11/09/2024 5:48 PM EDT) [facility] Influenza B Negative Negative, Indeterminate [facility] Swab 11/09/2024 5:48 PM EDT Ruben Isidro MD POINT OF CARE TEST ENTER/EDIT OR DERABLES Final Result [facility] [address] [place] [phone] * POCT Rapid Influenza A WINSTON ID NOW (11/09/2024 5:48 PM EDT) [facility] Influenza A Negative Negative, Indeterminate [facility] Swab 11/09/2024 5:48 PM EDT Ruben Isidro MD POINT OF CARE TEST ENTER/EDIT OR DERABLES Final Result Performing Organization Address [facility]/ZIP Co de Phone Number [facility] [address] [place] [phone] * POCT Rapid Strep A WINSTON ID NOW (11/09/2024 5:48 PM EDT) [facility] Rapid Strep A Screen Negative Negative, None Detected [facility] Swab 11/09/2024 5:48 PM EDT Ruben Isidro MD POINT OF CARE TEST ENTER/EDIT OR DERABLES Final Result Performing Organization Address [facility] Co de Phone Number [facility] [address] [place] [phone] * POCT Rapid Covid-19 BinaxNOW (11/09/2024 5:48 PM EDT) [facility] Rapid COVID Ag Negative Swab 11/09/2024 5:48 PM EDT Ruben Isidro MD POINT OF CARE TEST ENTER/EDIT OR DERABLES Final Result * [facility] Pap and HPV mRNA E6/E7 (02/08/2024 12:00 AM EDT) HPV nRNA E6/E7 Not Detected Not Detected [facility] Comment:Methodology: Transcr iption-Mediated AmplificationThis assay detects E6/E7 viral messenger RNA (mRNA) from 14high-risk HPV types (16,18,31,33,35,39,45,51,52,56,58,59,66,68).Cervical sources are required for HPV testing.If a vaginal source from a patient who has had atotal hysterectomy with removal of cervix wassubmitted, please contact the testing laboratoryfor alternative testing options.For additional information, please refer tohttp://education.Bettery/faq/HUW777s5(This link if provided for information/educational purposes only.)THIS TEST WAS PERFORMED AT:[employer] [employer] [place] [phone] PEDRAZA MD SOURCE: SEE NOTE [facility] Comment:Cervix Report Status: [facility] Clinical Information: SEE NOTE [facility] Comment:None given LMP: SEE NOTE [facility] Comment:NONE GIVEN Prev. PAP: SEE NOTE [facility] Comment:NONE GIVEN Prev. BX: SEE NOTE [facility] Comment:NONE GIVEN Statement Of Adequacy: SEE NOTE [facility] Comment:Satisfactory for ed luation.Endocervical/transformation zone component absent. General Categorization: [facility] Interpretation/Result: SEE NOTE [facility] Comment:Cytology Results: Ne gative for intraepitheliallesion or malignancy. Cytology Comment SEE NOTE [facility] Comment:This Pap test has be en evaluated with computerassisted technology. Confidential Investigator: SEE NOTE [facility] Comment:MRC, CT(ASCP) CT scr eening location: [address] [address] Review Confidential Investigator: [facility] Pathologist [facility] PAP Infection [facility] See Note SEE NOTE [facility] Comment:EXPLANATORY NOTE:The Pap is a screening test for cervical cancer. It isnot a diagnostic test and is subject to false negativeand false positive results. It is most reliable when asatisfactory sample, regularly obtained, is submittedwith relevant clinical findings and history, and whenthe Pap result is evaluated along with historic andcurrent clinical information. 02/08/2024 02/08/2024 Narrative [facility] - 02/16/2024 2:02 PM EDT SEE SCANNED RESULTS IN EMRCERVIX Ashley Zapata CNM LAB PATHOLOGY ORDERABLES Final Result [facility] [address] [place] [phone] * BI Mammogram Diagnostic Tomosynthesis Bilateral (12/31/2023 1:30 PM EDT) Anatomical Region Laterality Modality Breast Bilateral Mammography 12/31/2023 1:30 PM EDT Narrative 12/31/2023 2:22 PM EDT [address] [place] [address] Mammography Report Signed Patient: Lu Jackson MR#: [id number] : 1975 Acct:[id number] Age/Sex: 48 / F ADM Date: 12/31/23 Loc: HO.MAMMO Attending Dr: Missy Husain PRESERVATIVE FILLER MACHINE OPERATOR Ordering Physician: Missy Husain PRESERVATIVE FILLER MACHINE OPERATOR Results: 1Negati ve Date of Service: 12/31/23 Follow Up: 1 Year From Orig ina Mammogram Procedure(s): MM tomosynthesis diagnostic BI Accession Number(s): [id number] cc: Missy Husain PRESERVATIVE FILLER MACHINE OPERATOR EXAMINATION: MM DIAGNOSTIC DIGITAL BREAST TOMOSYNTHESIS, BILATERAL CLINICAL INFORMATION: Diagnostic for history of right lateral breast erythema, tenderness, and nipple discharge which has since resolved with antibiotics. Due for yearly. COMPARISON: Mammography: Baseline examination. No priors. TECHNIQUE: Digital breast tomosynthesis is performed in both the craniocaudal and mediolateral oblique views along with computer-aided detection (CAD). Synthesized 2D images are generated from the tomosynthesis. In addition, and its left 3-D spot MLO was obtained. FINDINGS: The breasts are heterogeneously dense, which may obscure small masses (ACR BI-RADS breast composition Category c). There are no suspicious masses, suspicious grouped calcifications, or areas of architectural distortion in either breast. The parenchymal pattern is stable from prior exams. There is no skin or axillary abnormality. MM/MM tomosynthesis diagnostic BI IMPRESSION: No mammographic evidence of malignancy. Recommend patient resume routine annual bilateral screening. ASSESSMENT: BI-RADS BI-RADS 1 - Negative RECOMMENDATION: 1 year F/U Results were provided to the patient at time of visit by the technologist. This patient's information was entered into a reminder system with a target due date for their next mammogram. Electronically signed by: Sandor Jackson MD 12/31/2023 02:19 PM EDT Dictated By: Sandor Jackson MD Signed By: <Electronically signed by Sandor Jackson MD in OV> 12/31/23 1419 DD/ 1330 TD/TT: 12/31/23 1350 Stringer Up Soldering Machine: Procedure Note Donotuseinterpreter, Image - 12/31/2023 [facility] [address] [place] [address] Mammography Report Signed Patient: Jaden Jackson#: [id number] : 1975Acct:[id number] Age/Sex: 48 / FADM Date: 12/31/23 Loc: HO.MAMMO Attending Dr: Missy Husain PRESERVATIVE FILLER MACHINE OPERATOR Ordering Physician: Missy Husain NPResults: 1Negati ve Date of Service: 12/31/23Follow Up: 1 Year From Orig inal Mammogram Procedure(s): MM tomosynthesis diagnostic BI Accession Number(s): [id number] cc: Missy Husain PRESERVATIVE FILLER MACHINE OPERATOR EXAMINATION: MM DIAGNOSTIC DIGITAL BREAST TOMOSYNTHESIS, BILATERAL CLINICAL INFORMATION: Diagnostic for history of right lateral breast erythema, tenderness, and nipple discharge which has since resolved with antibiotics. Due for yearly. COMPARISON: Mammography: Baseline examination. No priors. TECHNIQUE: Digital breast tomosynthesis is performed in both the craniocaudal and mediolateral oblique views along with computer-aided detection (CAD). Synthesized 2D images are generated from the tomosynthesis. In addition, and its left 3-D spot MLO was obtained. FINDINGS: The breasts are heterogeneously dense, which may obscure small masses (ACR BI-RADS breast composition Category c). There are no suspicious masses, suspicious grouped calcifications, or areas of architectural distortion in either breast. The parenchymal pattern is stable from prior exams. There is no skin or axillary abnormality. MM/MM tomosynthesis diagnostic BI IMPRESSION: No mammographic evidence of malignancy. Recommend patient resume routine annual bilateral screening. ASSESSMENT: BI-RADS BI-RADS 1 - Negative RECOMMENDATION: 1 year F/U Results were provided to the patient at time of visit by the technologist. This patient's information was entered into a reminder system with a target due date for their next mammogram. Electronically signed by: Sandor Jackson MD 12/31/2023 02:19 PM EDT Dictated By: Sandor Jackson MD Signed By: <Electronically signed by Sandor Jackson MD in OV> 12/31/23 1419 DD/ 1330 TD/TT: 12/31/23 1350 Stringer Up Soldering Machine: Missy Husain NP IMG BI PROCEDURES Final Result from Last 3 Months or Most Recently Relevant to Health Maintenance Insurance [employer] Care Teams Manager Apple Relationship Specialty Start Date End Date Nahun Azevedo MD [address] [place] [phone] PCP - General Internal Medicine 07/11/24
[2024-12-10 02:19] LABS: Bacterial Vaginosis PCR POSITIVE (Negative); Candida Group PCR NOT DETECTED (Not Detect); Candida glab krusei PCR NOT DETECTED (Not Detect); Trichomonas vaginalis PCR NOT DETECTED (Not Detect)
== END 2024-12-09 13:14 | disposition home or self-care (01) ==
LOC: HO.LNP 13:13
PROVIDERS: Visit Provider Internal Medicine
DX: R30.0 Dysuria (principal); R39.9 Unspecified symptoms and signs involving the genitourinary system; Z11.2 Encounter for screening for other bacterial diseases
CPT/HCPCS: 81515; 87086

== ENCOUNTER 2025-01-11 11:56 | Outpatient (REF) | payer MEDICAID, SELFPAY ==
--- OUTSIDE RECORDS SUMMARY | 2025-01-11 15:20 | XMS_ITS | Encounter Summary ---
Author Organization [employer] Address [address] [place] [address] Care Team Providers Care Shipping Hand Name Role Phone Nahun Azevedo MD Primary Care Prov ider Reason for Visit * Reason Comments Flank Pain Encounter Details Date Type Department Care Team (Late st Contact Info) Description 01/11/2025 3:20 PM EDT Office Visit [facility] [address], [place] [phone] Hector Horvath MD [address], [place] [phone] Bilateral flank pain (Primary Dx); Hypertension, unspecified type Social History Tobacco Use Types Packs/Day Years [...] 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 Not on file Not on f ile documented as of this encounter Last Filed Vital Signs Vital Sign Reading Time Taken Comments Blood Pressure 149/105 01/11/2025 3:21 PM EDT Pulse 117 01/11/2025 3:21 PM EDT Temperature 36.8 C (98.2 F) 01/11/2025 3:21 PM EDT Respiratory Rate 20 01/11/2025 3:21 PM EDT Oxygen Saturation 97% 01/11/2025 3:21 PM EDT Inhaled Oxygen Concentration - - Weight 68.7 kg (151 lb 6.4 oz) 01/11/2025 3:21 P M EDT Height - - Body Mass Index 24.07 12/09/2024 10:01 AM EDT documented in this encounter Progress Notes * Hector Horvath MD - 01/11/2025 10:00 AM EDT Subjective Patient ID: Lu Jackson is a 49 y.o. female. HPI Lu was seen in walk-in clinic December 09 for bilateral flank pain, suprapubic pain, bloating that she stated was similar to previous symptoms when she had kidney infections. Denied dysuria or urinary frequency, but had vaginal discharge. Has history of kidney stones, was referred to Urology. Was prescribed Macrobid and with Diflucan and oral Flagyl. Urine C&S grew less than 10,000 CFU/mL with no identification or sensitivity done. BV panel was positive for bacterial vaginosis. She returns to walk-in clinic today because sx improved, but bilat flank pain recurred 1 week ago, nothing makes it worse, finding a comfortable position helps briefly. No urinary sx. She feels like she has bilat kidney infections due to similar sx in past.. + occasional nausea, no vomiting. +malaise. No fever, chills. Has [facility] in 2 days and she feels that she can't wait that long due to pain. Lives with children. LMP=2 weeks ago. Works as high school assistant principal. Former smopker. Patient Active Problem List Diagnosis Date Noted UTI symptoms 12/09/2024 Vaginal discharge 12/09/2024 Cold sore 12/09/2024 H/O renal calculi 12/09/2024 Encounter for medical examination to establish care 01/19/2024 General counseling and advice on female contraception 01/19/2024 Screening for colon cancer 01/19/2024 Vaginal mili 11/27/2023 Breast pain in female 11/27/2023 Cellulitis of chest wall 11/27/2023 Hypertension 07/30/2023 The following portions of the chart were reviewed this encounter and updated as appropriate: Review of Systems Constitutional: Negative for fever. Respiratory: Negative for shortness of breath. Cardiovascular: Negative for chest pain. Gastrointestinal: Positive for nausea. Negative for abdominal pain and vomiting. Genitourinary: Positive for flank pain. Skin: Negative for rash. Neurological: Negative for headaches. Objective Physical Exam Constitutional: Appearance: Normal appearance. HENT: Nose: Nose normal. Eyes: Conjunctiva/sclera: Conjunctivae normal. Pupils: Pupils are equal, round, and reactive to light. Cardiovascular: Rate and Rhythm: Normal rate and regular rhythm. Heart sounds: No murmur heard. Pulmonary: Effort: Pulmonary effort is normal. Breath sounds: Normal breath sounds. Musculoskeletal: General: Normal range of motion. Cervical back: No tenderness. Skin: Findings: No rash. Neurological: Mental Status: She is alert. Gait: Gait is intact. Psychiatric: Mood and Affect: Mood normal. Behavior: Behavior normal. Procedures Assessment/Plan Diagnoses and all orders for this visit: Bilateral flank pain ? etiology. Urine C&S pending. Prescribed acetaminophen, ibuprofen, Bactrim DS and small quantity of oxycodone to use at night andin the a.m. as needed when not working. Return to clinic if not improving. If urine culture is negative, consider musculoskeletal cause of pain. Keep appointment in 2 days with [facility]. - acetaminophen (Tylenol) 500 MG tablet; Take 2 tablets (1,000 mg) by mouth every 6 (six) hours if needed for moderate pain or fever for up to 25 doses. - ibuprofen 600 MG tablet; Take 1 tablet (600 mg) by mouth if needed in the morning, at noon, and at bedtime for moderate pain or fever for up to 10 days. - oxyCODONE (Roxicodone) 5 MG immediate release tablet; Take 1 tablet (5 mg) by mouth if needed in the morning and at bedtime for severe pain for up to 5 days. - sulfamethoxazole-trimethoprim (Bactrim DS) 800-160 MG tablet; Take 1 tablet by mouth 2 times daily for 7 days. - POCT urinalysis dipstick manually resulted - Culture, Urine, Routine Hypertension, unspecified type If that home BP readings have been in normal range. documented in this encounter Plan of Treatment Scheduled Orders Name Type Priority Associated Diagnoses Orde r Schedule Culture, Urine, Routine Microbiology Routine Bilateral flank pain Ordered: 01/11/2025 documented as of this encounter Procedures Procedure Name Priority Date/Time Associated Diagnosis Comments POCT URINALYSIS DIPSTICK Routine 01/11/2025 4:12 PM EDT Bilateral flank pain documented in this encounter Results * (ABNORMAL) POCT urinalysis dipstick manually resulted (01/11/2025 4:12 PM EDT) Color, UA Yellow Clarity, UA Clear Glucose, UA Negative Bilirubin, UA Few 15 Comment:small Ketones, UA Negative Spec Grav, UA 1.015 Blood, UA Positive(A) Negative, None Detected Comment:Trace-lysed pH, UA 7.0 Protein, UA Few 15 Comment:100 mg/dL Urobilinogen, UA 0.2 Leukocytes, UA Trace Negative, Rare, Trace Nitrite, UA Negative Negative, None Detected Urine 01/11/2025 4:12 PM EDT Hector Horvath MD POINT OF CARE TEST ENTER/EDIT OR DERABLES Final Result documented in this encounter Visit Diagnoses Diagnosis Bilateral flank pain- Primary Abdominal pain, unspecified site Hypertension, unspecified type documented in this encounter Additional Health Concerns Assessment Noted Time PHQ-9 Depression Total Score: 3 08/02/19 25 9:27 AM EDT documented as of this encounter Care Teams Shipping Hand Relationship Specialty Start Date End Date Nahun Azevedo MD [address] [place] [phone] PCP - General Internal Medicine 07/11/24 documented as of this encounter
--- OUTSIDE RECORDS SUMMARY | 2025-01-12 16:17 | XMS_ITS | Encounter Summary ---
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
--- OUTSIDE RECORDS SUMMARY | 2025-01-12 16:17 | XMS_ITS | Clinical Summary ---
Author Organization [employer] Address [address] [place] [address] Care Team Providers Care Missing Persons Investigator Name Role Phone Nahun Azevedo MD Primary Care Prov ider Allergies Active Allergy Reactions Criticality Noted Date Comments Cinnamon Swelling,Headache Medium 07/30/2023 Requires Benadryl for symptoms Coconut (Cocos Nucifera) Itching,Headache Medium 07/30/2023 Headache and throat itchiness, requires Benadryl for symptoms Medications amLODIPine (Norvasc) 5 MG tablet TAKE 1 TABLET BY MOUTH EVERY MORNING 90 tablet 3 5 Active Blood Pressure kit 1 kit Once per day. 1 kit 5 Active acetaminophen (Tylenol) 500 MG tabletIndicatio ns:Bilateral flank pain Take 2 tablets (1,000 mg) by mouth every 6 (six) hours if needed for moderate pain or fever for up to 25 doses. 50 tablet 5 Active ibuprofen 600 MG tabletIndicatio ns:Bilateral flank pain Take 1 tablet (600 mg) by mouth if needed in the morning, at noon, and at bedtime for moderate pain or fever for up to 10 days. 30 tablet 5 01/22/20 25 Active oxyCODONE (Roxicodone) 5 MG immediate release tabletIndicatio ns:Bilateral flank pain Take 1 tablet (5 mg) by mouth if needed in the morning and at bedtime for severe pain for up to 5 days. 10 tablet 5 01/17/20 25 Active sulfamethoxazol e-trimethoprim (Bactrim DS) 800-160 MG tabletIndicatio ns:Bilateral flank pain Take 1 tablet by mouth 2 times daily for 7 days. 14 tablet 5 01/19/20 25 Active nitrofurantoin, macrocrystal-mo nohydrate, (Macrobid) 100 MG capsuleIndicati ons:UTI symptoms Take 1 capsule (100 mg) by mouth 2 times daily for 7 days. 14 capsule 5 12/17/19 25 metroNIDAZOLE (Flagyl) 500 MG tabletIndicatio ns:Vaginal discharge Take 1 tablet (500 mg) by mouth 2 times daily for 7 days. 14 tablet 5 12/17/19 25 Active Problems Problem Noted Date Diagnosed [...] Encounters Date Type Department Care Team Description 01/11/2025 3:20 PM EDT Office Visit [facility] [address] [place] [phone] Hector Horvath MD Bilateral flank pain (Primary Dx); Hypertension, unspecified type 01/11/2025 Travel 12/09/2024 10:00 AM EDT Office Visit [facility] [address] [place] [phone] Gayatri Silverio MD UTI symptoms (Primary Dx); Flank pain; Dysuria; Vaginal discharge; Cold sore; H/O renal calculi; Hypertension, unspecified type 12/09/2024 Travel 11/11/2024 Telephone [facility] [address] [place] [phone] Ruben Isidro MD 11/09/2024 5:00 PM EDT Office Visit [facility] [address] [place] [address] Ruben Isidro MD Viral URI with cough [...] housing situation today? 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 Not [...] oz) 01/11/2025 3:21 P M EDT Height 168.9 cm (5' 6.5 ) 12/09/2024 10:01 AM ED T Body Mass Index 24.07 12/09/2024 10:01 AM EDT Plan of Treatment [...] 2 - PCV) 05/16/2009 05/16/2008 COVID-19 Vaccine (1 - season) 2025 Influenza Vaccine (#1) 01/02/202502/21/ 6, 04/26/2015, 03/21/2014, Additional history exists SDOH Screening 01/18/2025 01/19/2024 Family Planning (PISQ) 02/07/2025 02/08/2024 Zoster Vaccines (1 of 2) 2025 Alcohol/Substance Use Screening 08/01/2025 08/01/2024 Depression Screening 08/01/2025 08/01/2024, 08/02/19 25 Mammogram 12/30/2025 12/31/2023 Tobacco Screening 01/11/2026 01/11/2025 DTaP/Tdap/Td Vaccines (2 - Td or Tdap) [...] 01/11/2025 4:12 PM EDT Bilateral flank pain CULTURE, URINE, ROUTINE Routine 12/09/2024 10:14 AM EDT UTI symptoms BACTERIAL VAGINOSIS PANEL Routine 12/09/2024 10:13 AM EDT Dysuria POCT URINALYSIS DIPSTICK Routine 12/09/2024 10:11 AM [...] to Health Maintenance Results * (ABNORMAL) POCT urinalysis dipstick manually resulted (01/11/2025 4:12 PM EDT) Only the most recent of3 resultswithin the time period is included. Color, UA Yellow Clarity, UA Clear Glucose, [...] TEST ENTER/EDIT OR DERABLES Final Result * Culture, Urine, Routine (12/09/2024 10:14 AM EDT) Only the most recent of2 resultswithin the time period is included. Urine Urine specimen obtained by clean catch procedure / Unknown 12/09/2024 10:14 AM EDT 12/09/2024 1:14 PM EDT Comment:UACC Narrative [facility] - 12/10/2024 1:00 PM EDT Urine Culture Report Result Urine Culture < 10,000 cfu/ml Specimen Source: Urine clean catch Gayatri Marcelo MD LAB MICROBIOLOGY - [facility] ORDERABLES Final Result [facility] [address] [place] [phone] * (ABNORMAL) Bacterial Vaginosis (12/09/2024 10:13 AM EDT) Only the most recent of2 resultswithin the time period is included. TRICHOMONAS VAGINALIS DETECTION BY PCR NOT DETECTED Not Detect [facility] BACTERIAL VAGINOSIS DETECTION BY PCR POSITIVE(A) Negative [facility] Comment:The BV organism targ ets of [...] DETECTION BY PCR NOT DETECTED Not Detect [facility] Mili glab krusei PCR NOT DETECTED Not Detect [facility] Swab Vaginal structure / Unknown 12/09/2024 10:13 AM EDT 12/09/2024 5:48 PM EDT Gayatri Marcelo MD LAB MICROBIOLOGY - [facility] ORDERABLES Final Result [facility] [address] [place] [address] [phone] * Chlamydia/N. Gonorrhoeae RNA, TMA, Urogenitial (11/09/2024 6:30 PM EDT) CT PCR NOT DETECTED Not Detect. [facility] Comment:A not detected test result does [...] psychologicalconsequences. NG PCR NOT DETECTED Not Detect. [facility] Comment:A not detected test result does [...] 6:30 PM EDT 11/10/2024 12:20 PM EDT us Ruben Isidro MD LAB MICROBIOLOGY - GENERAL ORDER ASAD Final Result Performing Organization Address [facility] Co de Phone Number [facility] [address] [place] [phone] * POCT Rapid Influenza B [place] ID NOW (11/09/2024 5:48 PM EDT) Influenza B Negative Negative, Indeterminate [facility] Swab 11/09/2024 5:48 PM EDT us Ruben Isidro MD POINT OF CARE TEST ENTER/EDIT OR DERABLES Final Result Performing Organization Address [facility] Co de Phone Number [facility] [address] [place] [phone] * POCT Rapid Influenza A [place] ID NOW (11/09/2024 5:48 PM EDT) [facility] Influenza A Negative Negative, Indeterminate [facility] Swab 11/09/2024 5:48 PM EDT us Ruben Isidro MD POINT OF CARE TEST ENTER/EDIT OR DERABLES Final Result Performing Organization Address [facility] Co de Phone Number [facility] [address] [place] [phone] * POCT Rapid Strep A [place] ID NOW (11/09/2024 5:48 PM EDT) Pathologist [facility] Rapid Strep A Screen Negative Negative, None Detected [facility] Swab 11/09/2024 5:48 PM EDT us Ruben Isidro MD POINT OF CARE TEST ENTER/EDIT OR DERABLES Final Result Performing Organization Address [facility] Co de Phone Number [facility] [address] [place] [address] [phone] * POCT Rapid Covid-19 BinaxNOW (11/09/2024 5:48 PM EDT) Pathologist [facility] Rapid COVID Ag Negative Swab 11/09/2024 5:48 PM EDT Ruben Isidro MD POINT OF CARE TEST ENTER/EDIT OR DERABLES Final Result * [facility] Pap and HPV mRNA E6/E7 (02/08/2024 12:00 AM EDT) Pathologist [facility] HPV nRNA E6/E7 Not Detected Not Detected [facility] Comment:Methodology: Transcr iption-Mediated AmplificationThis assay detects E6/E7 viral messenger RNA (mRNA) from 14high-risk HPV types (16,18,31,33,35,39,45,51,52,56,58,59,66,68).Cervical sources are required for HPV testing.If a vaginal source from a patient who has had atotal hysterectomy with removal of cervix wassubmitted, please contact the testing laboratoryfor alternative testing options.For additional information, please refer [email or web address]/faq/IAZ083g7(This link if provided for information/educational purposes only.)THIS TEST WAS PERFORMED AT:[facility] [place] [phone] PEDRAZA MD SOURCE: SEE NOTE [facility] Comment:Cervix Report Status: [facility] Clinical Information: SEE NOTE [facility] Comment:None given LMP: SEE NOTE [facility] Comment:NONE GIVEN Prev. PAP: SEE NOTE [facility] Comment:NONE GIVEN Prev. BX: SEE NOTE [facility] Comment:NONE GIVEN Statement Of Adequacy: SEE NOTE [facility] Comment:Satisfactory for ed luation.Endocervical/transformation zone component absent. General Categorization: [facility] Interpretation/Result: SEE NOTE [facility] Comment:Cytology Results: Ne gative for intraepitheliallesion or malignancy. Cytology Comment SEE NOTE [facility] Comment:This Pap test has be en evaluated with computerassisted technology. Motor Generator Set Operator: SEE NOTE [facility] Comment:MRC, CT(ASCP) CT scr eening location: [place] [address] Review Motor Generator Set Operator: [facility] Pathologist [facility] PAP Infection [facility] See Note SEE NOTE [facility] Comment:EXPLANATORY NOTE:The Pap is a screening test for cervical cancer. It isnot a diagnostic test and is subject to false negativeand false positive results. It is most reliable when asatisfactory sample, regularly obtained, is submittedwith relevant clinical findings and history, and whenthe Pap result is evaluated along with historic andcurrent clinical information. 02/08/2024 02/08/2024 Narrative [facility] - 02/16/2024 2:02 PM EDT SEE SCANNED RESULTS IN EMRCERVIX us Ashley MCNAMARA LAB PATHOLOGY ORDERABLES Final Result [facility] [address] [place] [address] [phone] * BI Mammogram Diagnostic Tomosynthesis Bilateral (12/31/2023 1:30 PM EDT) Anatomical Region Laterality Modality Breast Bilateral Mammography 12/31/2023 1:30 PM EDT Narrative 12/31/2023 2:22 PM EDT [facility] [address] [place] [address] Mammography Report Signed Patient: Lu Jackson MR#: [id number] : 1975 Acct:[id number] Age/Sex: 48 / F ADM Date: 12/31/23 Loc: HO.MAMMO Attending Dr: Missy Husain RECAPPER Ordering Physician: Missy Husain NP Results: 1Negati ve Date of Service: 12/31/23 Follow Up: 1 Year From Orig inal Mammogram Procedure(s): MM tomosynthesis diagnostic BI Accession Number(s): [id number] cc: Missy Husain RECAPPER EXAMINATION: MM DIAGNOSTIC DIGITAL BREAST TOMOSYNTHESIS, BILATERAL [...] 12/31/23 1419 DD/ 1330 TD/TT: 12/31/23 1350 Ux Research Associate: Procedure Note Donotuseinterpreter, Image - 12/31/2023 [facility] [address] [place] [address] Mammography Report Signed Patient: Jaden Jackson#: [id number] : 1975Acct:[id number] Age/Sex: 48 / FADM Date: 12/31/23 Loc: HO.MAMMO Attending Dr: Missy Husain RECAPPER Ordering Physician: Missy Husain NPResults: 1Negati ve Date of Service: 12/31/23Follow Up: 1 Year From Orig ina Mammogram Procedure(s): MM tomosynthesis diagnostic BI Accession Number(s): [id number] cc: Missy Husain RECAPPER EXAMINATION: MM DIAGNOSTIC DIGITAL BREAST TOMOSYNTHESIS, BILATERAL [...] 12/31/23 1419 DD/ 1330 TD/TT: 12/31/23 1350 Ux Research Associate: Missy Husain NP IMG BI PROCEDURES Final Result from Last 3 Months or Most Recently Relevant to Health Maintenance Insurance [facility] C3 Care Teams Missing Persons Investigator Relationship Specialty Start Date End Date Nahun Azevedo MD [address] [place] [phone] PCP - General Internal Medicine 07/11/24
== END 2025-01-11 11:57 | disposition home or self-care (01) ==
LOC: HO.HHCLNP 11:56
PROVIDERS: Visit Provider Emergency Medicine
DX: R10.9 Unspecified abdominal pain (principal)
CPT/HCPCS: 87086

== ENCOUNTER 2025-01-13 11:26 | Outpatient (AMB) | payer MEDICAID, SELFPAY ==
--- NOTE | 2025-01-13 11:26 | A.OFFVIS_ITS ---
Intake Visit Reasons: UTI and hx of kidney stones Intake Note: New Patient is present for Hx stones , UTI Urology Rx:none PVR:284 mls Blood Thinners:none Imaging completed: none Ham Rolling Machine Operator Required: No Accompanied by: Self / Same As Patient Allergies cinnamon (CINNAMON) Adverse Reaction (Unknown, Verified 01/13/25 11:28) MIGRAINE coconut Adverse Reaction (Unknown, Verified 01/13/25 11:28) MIGRAINE HPI Comments Details: Lu is a pleasant female. She is a patient of . She seen for following urologic conditions - nephrolithiasis versus early UTI Prior history of stones Has had flank pain Onset stone versus UTI UA positive blood but otherwise negative Trial tamsulosin Follow-up three-month renal ultrasound PFSH Medical History Migraine Social History Alcohol intake: current Alcohol intake frequency: does not drink Review of Systems Const Denies chills and Denies fever(s) Card Reports no additional complaints and Denies syncope Resp Denies cough GI Denies abdominal pain and Denies heartburn Reports as per HPI and Denies change in libido Neuro Denies syncope Psych Denies change in libido Endo Denies change in libido Physical Exam Const General: cooperative, healthy appearing, comfortable and no acute distress Orientation/consciousness: patient oriented x3 HEENT Face and sinus: Yes normal facial exam Mouth: moist mucous membranes Neck Neck: Yes normal visual inspection, Yes full ROM and Yes trachea midline Chest Chest palpation & inspection: normal inspection of the chest Resp Effort & Inspection: normal respiratory effort, able to speak in complete sentences and no respiratory distress GI Inspection: Yes normal to inspection Back/Spine/Pelvis Cervical Spine: normal cervical lordosis Thoracic/Lumbar Spine: thoracic and lumbar spine normal to inspection Skin General skin exam: no rashes or lesions noted Neuro General: patient oriented x3, gait normal, tone normal and moves all extremities Extrem General: Yes normal to inspection and Yes capillary refill normal Office Procedures Post Void Residual Post Residual Void Post Void Residual (PVR): 284 [id number] Void Residual by ultrasound Results AMB Urinalysis, Automated UA Leukoctes 0 Farrukh/uL Last Edit by ARVIN Carvajal on 01/13/25 15:30 UA Nitrite Negative Last Edit by ARVIN Carvajal on 01/13/25 15:30 UA Urobilinogen 0.2 mg/dL Last Edit by ARVIN Carvajal on 01/13/25 15:3 0 UA Protein 0 mg/dL Last Edit by ARVIN Carvajal on 01/13/25 15:30 UA pH 6.0 Last Edit by Candelaria Edwards CCM on 01/13/25 15:30 UA Blood 25 Dewey/uL Last Edit by Candelaria Edwards [facility] on 01/13/25 15:30 UA Specific Craig 1.015 Last Edit by Candelaria Edwards [facility] on 01/13/25 15: 30 UA Ketone Negative Last Edit by ARVIN Carvajal on 01/13/25 15:30 UA Bilirubin 0 mg/dL Last Edit by ARVIN Carvajal on 01/13/25 15:30 UA Glucose 0 mg/dL Last Edit by Candelaria [facility] on 01/13/25 15:30 Results Reviewed Results Reviewed: Laboratory Last Values Urine pH (Auto) 6.0 01/13/25 15:29 Specific Craig (Auto) 1.015 01/13/25 15:29 Urine Protein (Auto) 0 mg/dL 01/13/25 15:29 Glucose (UA)(Auto) 0 mg/dL 01/13/25 15:29 Urine Ketones (Auto) Negative 01/13/25 15:29 Urine Blood (Auto) 25 Dewey/uL 01/13/25 15:29 Urine Nitrite (Auto) Negative 01/13/25 15:29 Urine Bilirubin (Auto) 0 mg/dL 01/13/25 15:29 Urine Urobilinogen (Auto) 0.2 mg/dL 01/13/25 15:29 Leukocyte Esterase (Auto) 0 Farrukh/uL 01/13/25 15:29 Assessment & Plan Assessment & Plan (1) Urinary retention with incomplete bladder emptying: Code(s): R33.9 - Retention of urine, unspecified Category: Medical (2) Nephrolithiasis: Code(s): N20.0 - Calculus of kidney Category: Medical Plan Follow-up renal ultrasound Orders: Orders US retroperitoneal comp 2 Months N20.0 - Calculus of kidney, N39.0 - Urinary tract infection, site not specified AMB Urinalysis Automated 01/13/25 Z13.9 - Encounter for screening, unspecified AMB Post Void Residual by ultrasound 01/13/25 R33.9 - Retention of urine, unspecified Medications: New tamsulosin 0.4 mg PO DAILY 14 caps 1RF 14 days R33.9 - Retention of urine, unspecified Patient Instructions: This note is constructed using voice recognition software. While every effort has been made to ensure accuracy global marketing coordinator errors may have been included. Imaging studies, laboratory and physical exam results were discussed and reviewed in detail. No major barriers to patient understanding were identified. An opportunity to ask questions regarding the treatment plan was provided. All questions were answered. The patient expressed understanding and agreement with the above treatment plan. The patient is aware they should contact our office by phone for worsening of their current condition or the appearance of new urologic symptoms. Compliance is encouraged with any medications and followup testing that is ordered. It is a privilege to participate in the urologic care of your patient. If you have any questions or concerns regarding treatment for the above conditions, or other urologic issues, please do not hesitate to contact me. The office telephone contact is [phone]. Sincerely, Dr Arik Murray MD, [facility] - Urology Compassionate Specialist Care for the Genitourinary System Coding Level of Care Code New Pt Level 3 (69935) Diagnoses Urinary retention with incomplete bladder emptying R33.9 Nephrolithiasis N20.0 CPT Codes Post Residual Void - PVR CPT Code: 08520-Xnpk Void Residual by ultrasound ([id number])
== END 2025-01-13 12:03 | disposition home or self-care (01) ==
PROVIDERS: PCP Internal Medicine; Visit Provider Urology
DX: Z13.9 Encounter for screening, unspecified (principal)
CPT/HCPCS: 99203

== ENCOUNTER → 2025-01-13 11:26 | Outpatient (BNVA) | payer MEDICAID, SELFPAY | PROVIDERS: PCP Internal Medicine; Visit Provider Urology | DX: N20.0 Calculus of kidney (principal); R39.9 Unspecified symptoms and signs involving the genitourinary system | CPT/HCPCS: 51798; 81003; 99202 ==